=== PATIENT | male | born 1955 | race Caucasian/White ===

== ENCOUNTER → 2016-09-16 | Outpatient (CLI) | payer OTHER ==
[2016-09-16 15:39] LABS: BLOOD UREA NITROGEN 19 mg/dl (7-18); BUN/CREATININE RATIO 17.3 (10-20); CALCIUM 9.1 mg/dl (8.5-10.1); CARBON DIOXIDE 23 mmol/L (21-32); CHLORIDE 107 mmol/L (98-107); GLUCOSE 98 mg/dl (70-99); POTASSIUM 4.4 mmol/L (3.5-5.1); SODIUM 141 mmol/L (136-145)
[2016-09-16 15:46] LABS: C-REACTIVE PROTEIN 0.45 mg/dl (0-0.29); RHEUMATOID FACTOR < 10.0 U/mL (0-15); URIC ACID 7.6 mg/dl (2.6-7.2)
== END | disposition home or self-care (01) ==
LOC: C.LABBC 11:05
PROVIDERS: ATTEND Orthopaedic Surgery
DX: M25.40 Effusion, unspecified joint (principal); M25.50 Pain in unspecified joint